=== PATIENT | female | born 1970 | race Caucasian/White ===

== ENCOUNTER 2016-07-10 21:58 | Emergency (ER) | payer SELFPAY ==
[~2016-07-10] VITALS: Ht 162.6 cm; Wt 76.0 kg
[2016-07-10] MEDS ORDERED: FAMOTIDINE 20MG/2ML VIAL IV STA (22:56)
[2016-07-10] MEDS ORDERED: VISCOUS LIDOCAINE 2% 15 ML UDC PO STA (22:56)
[2016-07-10] MEDS ORDERED: MAGNESIUM/ALUMINUM HYDROXIDE/SIMETHICONE 30ML UDC PO STA (22:56)
[2016-07-10] MEDS ORDERED: ONDANSETRON HCL 4MG/2ML VIAL IV STA (22:56)
[2016-07-10] MEDS ORDERED: SODIUM CHLORIDE 0.9% 1,000 ML IV ONE (22:56)
[2016-07-10] MEDS ORDERED: MORPHINE SULFATE 4 MG/ML CPJ (NOT FOR IM USE) IV STA (22:56)
[2016-07-10 23:26] LABS: CLARITY URINE CLEAR (CLEAR); COLOR URINE YELLOW (YELLOW); GLUCOSE URINE NEGATIVE (NEGATIVE); KETONES URINE TRACE (NEGATIVE); LEUKOCYTE ESTERASE URINE TRACE (NEGATIVE); NITRITE URINE NEGATIVE (NEGATIVE); OCCULT BLOOD URINE 1+ (NEGATIVE); PROTEIN URINE TRACE (NEGATIVE); SPECIFIC GRAVITY URINE 1.028 (1.005-1.030)
[2016-07-10 23:45] LABS: BASOPHILS % 1.2 % (0.0-2.0); EOSINOPHILS % 0.1 % (0.0-5.0); HEMATOCRIT. 29.5 % (36.0-48.0); HEMOGLOBIN. 9.1 g/dL (12.0-16.0); LYMPHOCYTES % 14.3 % (20.0-50.0); MEAN CORPUSCULAR HEMOGLOBIN 20.9 pg (28.0-32.0); MEAN CORPUSCULAR VOLUME 67.5 fL (81.0-99.0); MEAN PLATELET VOLUME 7.8 fl (7.4-10.4); MONOCYTES % 5.1 % (2.0-8.0); NEUTROPHILS % 79.3 % (40.0-76.0); PLATELET 360 x1000/uL (130-400); RED BLOOD CELL COUNT 4.37 mill/uL (4.2-5.4)
[2016-07-10 23:48] LABS: CHLORIDE 109 mEq/L (98-107)
[2016-07-10 23:56] LABS: CARBON DIOXIDE 24 mEq/L (21-32)
[2016-07-10 23:59] LABS: HCG SCREEN NEGATIVE
[2016-07-11 01:21] VITALS: BP 127/74
== END 2016-07-11 06:15 | disposition home or self-care (01) ==
LOC: ER 07-11 06:14
DX: N39.0 Urinary tract infection, site not specified (principal); D25.9 Leiomyoma of uterus, unspecified; F17.210 Nicotine dependence, cigarettes, uncomplicated; Z90.49 Acquired absence of other specified parts of digestive tract
CPT/HCPCS: 36415; 76830; 76856; 80053; 81001; 83690; 84703; 85025; 93005; 96361; 96374; 96375; 99285; J2270; J2405; J3490; J7030; Z7610